=== PATIENT | male | born 1995 | race Two or more races ===

== ENCOUNTER 2019-09-15 09:43 | Emergency (ER) | payer SELFPAY ==
[~2019-09-15] VITALS: Ht 167.6 cm; Wt 57.0 kg
[2019-09-15 09:47] VITALS: BP 127/90
[2019-09-15] MEDS ORDERED: ACETAMINOPHEN 325MG TABLET PO ONE (10:15)
== END 2019-09-15 10:45 | disposition home or self-care (01) ==
LOC: ER 09:43
DX: R07.89 Other chest pain (principal); R05 Cough
CPT/HCPCS: 71045; 93005; 99283